=== PATIENT | male | born 1965 | race Caucasian/White ===

== ENCOUNTER 2017-03-17 12:28 | Inpatient (IN) | payer SELFPAY ==
[2017-03-17] MEDS ORDERED: Sodium Chloride 0.9% 10 ML Syringe FLUSH PRN (13:09)
[2017-03-17] MEDS ORDERED: Sodium Chloride 0.9% 1,000 ML IV ONE (13:10)
[2017-03-17] MEDS ORDERED: Ondansetron 4 MG/2 ML SDV IVPUSH ONE (13:10)
[2017-03-17] MEDS ORDERED: HYDROmorphone 0.5 MG/0.5 ML Syringe IVPUSH ONE (13:10)
--- NOTE | 2017-03-17 13:16 | EDM.PDOC ---
ED HPI GENERAL MEDICAL PROBLEM - General Chief Complaint: Abdominal Pain Stated Complaint: R SIDE PAIN Time Seen by Provider: 03/17/17 13:01 Source of Information: Reports: Patient History Limitations: Reports: No Limitations - History of Present Illness INITIAL COMMENTS - FREE TEXT/NARRATIVE: Patient is a 51-year-old male who admits ED complaining of right lower quadrant abdominal pain that started approximately 2 days ago and progressively got worse. Pain is progressively getting worse unable to stand straight up. Pain is worsen with ambulating. And is quite tender with touch. He does have a history of left inguinal hernia repair with no further complications. Patient states pain is more tolerable with lying down than standing up. There's been no documented fever, nausea/vomiting, diarrhea, headache, chills, chest pain, shortness of breath. Patient still has his appendix. He has no history kidney stones. He was evaluated by his PCP Ruslan Johnson earlier today with CBC obtained indicating White blood cell count of 17.6 with neutrophilia and left shift. Patient has a past medical history of GERD and is on a PPI. Surgical history includes left inguinal hernia repair. Repair of nerve and vasculature to left thigh after being impaled with metal. Ulcer to the left foot secondary to wearing a brace that became infected requiring hospitalization and IV antibiotics. 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 Patient last ate at 9:00 this morning. He does not smoke. Alcohol use rarely. Denied recreational drug use. Treatments ETCHER HAND: Reports: NSAIDS Right Lower Abdominal Pain Score (Numeric/FACES): 6 - Related Data Allergies Allergy/AdvReac Type Severity Reaction Status Date / Time No Known Allergies Allergy Verified 03/17/17 12:42 Home Meds: Home Meds Esomeprazole Magnesium [Nexium] 40 mg PO DAILY 03/17/17 [History] Past Medical History Musculoskeletal History: Reports: Other (See Below) Other Musculoskeletal History: left foot infection, antiiobtics needed. Psychiatric History: Reports: Anxiety - Past Surgical History GI Surgical History: Reports: Hernia, Inguinal, Hernia Repair/Other Musculoskeletal Surgical History: Reports: Other (See Below) Other Musculoskeletal Surgeries/Procedures:: left left surgery when pt was teenager, probably 1983 Social & Family History - Tobacco Use Smoking Status *Q: Former Smoker Used Tobacco, but Quit: Yes Month Tobacco Last Used: 1999 - Caffeine Use Caffeine Use: Reports: Coffee, Soda - Recreational Drug Use Recreational Drug Use: No ED ROS GENERAL - Review of Systems Review Of Systems: ROS reveals no pertinent complaints other than HPI. ED EXAM, GI/ABD - Physical Exam Exam: See Below Exam Limited By: No Limitations General Appearance: Alert, WD/WN, No Apparent Distress Ears: Hearing Grossly Normal Nose: Normal Inspection Throat/Mouth: Normal Voice, No Airway Compromise Head: Atraumatic, Normocephalic Neck: Normal Inspection, Supple Respiratory/Chest: No Respiratory Distress, Lungs Clear, Normal Breath Sounds, No Accessory Muscle Use, Chest Non-Tender Cardiovascular: Normal Peripheral Pulses, Regular Rate, Rhythm GI/Abdominal Exam: Normal Bowel Sounds, Soft, No Organomegaly, Rebound, Tender ( Right lower quadrant and inguinal region. Peritoneal signs are present. ) Rectal (Males) Exam: Deferred (No c/o's per patient) Neurological: Alert, Oriented, CN II-XII Intact, Normal Cognition, No Motor/ Sensory Deficits Psychiatric: Normal Affect, Normal Mood Skin Exam: Warm, Dry, Intact, Normal Color Course - Vital Signs Last Recorded V/S: Last Vital Signs Temp 98.4 F 03/17/17 12:44 Pulse 99 03/17/17 12:44 Resp 18 03/17/17 12:44 BP 152/91 H 03/17/17 12:44 Pulse Ox 96 03/17/17 12:44 - Orders/Labs/Meds Orders: Active Orders 24 hr Category Date Time Status EKG Documentation Completion [RC] STAT Care 03/17/17 13:09 Active Peripheral IV Care [RC] . DIRECTED Care 03/17/17 13:10 Active Piperacillin/Tazobactam [Zosyn] 4.5 gm Med 03/17/17 15:17 Active Sodium Chloride 0.9% [Normal Saline] 100 ml IV ONETIME Sodium Chloride 0.9% [Normal Saline] 1,000 ml Med 03/17/17 13:10 Active IV ONETIME Sodium Chloride 0.9% [Saline Flush] Med 03/17/17 13:09 Active 10 ml FLUSH ASDIRECTED PRN Peripheral IV Insertion Adult [OM.PC] Stat Oth 03/17/17 13:09 Ordered Medication Orders Sodium Chloride (Normal Saline) 1,000 mls @ 250 mls/hr IV ONETIME ONE Stop: 03/17/17 17:09 Last Admin: 03/17/17 13:23 Dose: 250 mls/hr Piperacillin Sod/Tazobactam (Sod 4.5 gm/ Sodium Chloride) 100 mls @ 200 mls/hr IV ONETIME ONE Stop: 03/17/17 15:46 Last Admin: 03/17/17 15:29 Dose: 200 mls/hr Sodium Chloride (Saline Flush) 10 ml FLUSH ASDIRECTED PRN PRN Reason: Keep Vein Open Last Admin: 03/17/17 14:37 Dose: 10 ml Labs: Laboratory Tests 03/17/17 03/17/17 03/17/17 Range/Units 13:15 13:15 13:15 WBC 17.77 H (4.23-9.07) K/mm3 RBC 5.39 (4.63-6.08) M/mm3 Hgb 15.8 (13.7-17.5) gm/L Hct 46.3 (40.1-51.0) % MCV 85.9 (79.0-92.2) fl MCH 29.3 (25.7-32.2) pg MCHC 34.1 (32.2-35.5) g/dl RDW Std Deviation 42.0 (35.1-43.9) fL Plt Count 183 (163-337) K/mm3 MPV 10.0 (9.4-12.3) fl Neut % (Auto) 80.8 H (34.0-67.9) % Lymph % (Auto) 6.2 L (21.8-53.1) % [place] % (Auto) 12.3 H (5.3-12.2) % Eos % (Auto) 0.2 L (0.8-7.0) Baso % (Auto) 0.2 (0.1-1.2) % Neut # (Auto) 14.38 H (1.78-5.38) K/mm3 Lymph # (Auto) 1.10 L (1.32-3.57) K/mm3 [place] # (Auto) 2.18 H (0.30-0.82) K/mm3 Eos # (Auto) 0.03 L (0.04-0.54) K/mm3 Baso # (Auto) 0.03 (0.01-0.08) K/mm3 Sodium 138 (136-145) mEq/L Potassium 3.9 (3.5-5.1) mEq/L Chloride 100 (98-107) mEq/L Carbon Dioxide 26 (21-32) mEq/L Anion Gap 15.9 H (5-15) BUN 16 (7-18) mg/dL Creatinine 1.2 (0.7-1.3) mg/dL Est Cr Clr Drug Dosing 80.83 mL/min Estimated GFR (MDRD) > 60 (>60) mL/min BUN/Creatinine Ratio 13.3 L (14-18) Glucose 111 H (74-106) mg/dL Calcium 9.4 (8.5-10.1) mg/dL Total Bilirubin 0.7 (0.2-1.0) mg/dL AST 26 (15-37) U/L ALT 44 (16-63) U/L Alkaline Phosphatase 97 (46-116) U/L C-Reactive Protein 34.1 H* (<1.0) mg/dL Total Protein 8.2 (6.4-8.2) g/dl Albumin 3.7 (3.4-5.0) g/dl Globulin 4.5 gm/dL Albumin/Globulin Ratio 0.8 L (1-2) Lipase 58 L (73-393) U/L Urine Color Yellow (Yellow) Urine Appearance Clear (Clear) Urine pH 7.0 (5.0-8.0) Ur Specific [place] 1.025 (1.005-1.030) Urine Protein 2+ H (Negative) Urine Glucose (UA) Trace H (Negative) Urine Ketones Negative (Negative) Urine Occult Blood Negative (Negative) Urine Nitrite Negative (Negative) Urine Bilirubin 1+ H (Negative) Urine Urobilinogen 1.0 (0.2-1.0) Ur Leukocyte Esterase Negative (Negative) Urine RBC 0-5 (0-5) /hpf Urine WBC 0-5 (0-5) /hpf Ur Epithelial Cells 0-5 (0-5) /hpf Urine Bacteria Few (FEW) /hpf Urine Mucus Few (FEW) /hpf Meds: Medications Generic Name Dose Route Start Last Admin Trade Name Freq PRN Reason Stop Dose Admin Sodium Chloride 1,000 mls @ 250 mls/hr 03/17/17 13:10 03/17/17 13:23 Normal Saline IV 03/17/17 17:09 250 mls/hr ONETIME ONE Administration Piperacillin Sod/Tazobactam 100 mls @ 200 mls/hr 03/17/17 15:17 03/17/17 15: 29 Sod 4.5 gm/ Sodium Chloride IV 03/17/17 15:46 200 mls/hr ONETIME ONE Administration Sodium Chloride 10 ml 03/17/17 13:09 03/17/17 14:37 Saline Flush FLUSH 10 ml ASDIRECTED PRN Administration Keep Vein Open Discontinued Medications Generic Name Dose Route Start Last Admin Trade Name Freq PRN Reason Stop Dose Admin Diatrizoate Meglum/Diatrizoate Sod 90 ml 03/17/17 13:20 03/17/17 14:37 Gastrografin 37% PO 03/17/17 13:21 90 ml ONETIME ONE Administration Hydromorphone HCl 0.5 mg 03/17/17 13:10 03/17/17 13:25 Dilaudid IVPUSH 03/17/17 13:11 0.5 mg ONETIME ONE Administration Cefoxitin Sodium 2 gm/ Premix 50 mls @ 100 mls/hr 03/17/17 14:14 03/17/17 14: 49 IV 03/17/17 14:43 100 mls/hr ONETIME ONE Administration Iopamidol 125 ml 03/17/17 13:20 03/17/17 14:37 Isovue-300 (61%) IVPUSH 03/17/17 13:21 125 ml ONETIME ONE Administration Ondansetron HCl 4 mg 03/17/17 13:10 03/17/17 13:23 Zofran IVPUSH 03/17/17 13:11 4 mg ONETIME ONE Administration Sodium Chloride 10 ml 03/17/17 13:20 03/17/17 13:25 Saline Flush FLUSH 03/17/17 13:21 10 ml ONETIME ONE Administration - Re-Assessments/Exams Free Text/Narrative Re-Assessment/Exam: IV established with normal saline 250 mL per hour, Zofran 4 mg IVP, and Dilaudid 0.5 mg IVP. Initial labs and studies include CBC, chem 14, lipase, UA, CRP, EKG, and CT abdomen and pelvis with IV and oral contrast. Labs: Labs reviewed: White blood cell count 17.77, hemoglobin 15.8, neutrophil percent is 80.8 with a left shift of 14.38. Sodium 138, potassium 3.9, AG 15.9, creatinine 1.2, glucose 111, LFTs within normal limits, CRP quite elevated at 34.1, lipase 58. UA revealed protein 2+, trace glucose, bilirubin 1+. Refrain patient may have appendicitis with labs indicating elevated white blood cell count with left shift and a CRP of 34.1. He does have peritoneal signs. Ordered cefoxitin 2 g IV. 03/17/17 14:40 I spoke with the on-call general surgeon Dr. Tuttle. We have reviewed the CT of the abdomen and pelvis with IV and oral contrast. It appears patient has inflammation noted to the right lower quadrant consistent for acute appendicitis. We are waiting for final radiologist interpretation. 03/17/17 15:10 CT abdomen and pelvis final Impression: Appendicitis. Notified Dr. Tuttle. 03/17/17 15:17 Dr. Vogt has evaluated the patient. OR staff has been notified. Requested zosyn 4.5 grams IV. Departure - Departure Time of Disposition: 15:17 Disposition: DC/Tfer to [facility] Access 66 Condition: Fair Clinical Impression: Appendicitis Qualifiers: Appendicitis type: acute appendicitis Acute appendicitis type: with localized peritonitis Qualified Code(s): K35.3 - Acute appendicitis with localized peritonitis - Discharge Information - My Orders Last 24 Hours: My Active Orders 03/17/17 13:09 EKG Documentation Completion [RC] STAT Sodium Chloride 0.9% [Saline Flush] 10 ml FLUSH ASDIRECTED PRN Peripheral IV Insertion Adult [OM.PC] Stat 03/17/17 13:10 Peripheral IV Care [RC] . DIRECTED Sodium Chloride 0.9% [Normal Saline] 1,000 ml IV ONETIME 03/17/17 15:17 Piperacillin/Tazobactam [Zosyn] 4.5 gm Sodium Chloride 0.9% [Normal Saline] 100 ml IV ONETIME - Assessment/Plan Last 24 Hours: My Active Orders 03/17/17 13:09 EKG Documentation Completion [RC] STAT Sodium Chloride 0.9% [Saline Flush] 10 ml FLUSH ASDIRECTED PRN Peripheral IV Insertion Adult [OM.PC] Stat 03/17/17 13:10 Peripheral IV Care [RC] . DIRECTED Sodium Chloride 0.9% [Normal Saline] 1,000 ml IV ONETIME 03/17/17 15:17 Piperacillin/Tazobactam [Zosyn] 4.5 gm Sodium Chloride 0.9% [Normal Saline] 100 ml IV ONETIME
[2017-03-17] MEDS ORDERED: Diatrizoate Meglumine/Diatrizoate Sodium 37% 120 ML Bottle PO ONE (13:20)
[2017-03-17] MEDS ORDERED: Sodium Chloride 0.9% 10 ML Syringe FLUSH ONE (13:20)
[2017-03-17] MEDS ORDERED: Iopamidol 612 MG/ML 150 ML Bottle IVPUSH ONE (13:20)
[2017-03-17] MEDS ORDERED: cefOXitin 2 GM in Premix Bag 1 BAG IV ONE (14:14)
--- NOTE | 2017-03-17 15:08 | CT ---
CT abdomen and pelvis Technique: Multiple axial sections were obtained from above the dome of the diaphragm inferiorly through the pubic symphysis. Intravenous and oral contrast was utilized. Delayed images were obtained through the bladder. Findings: Inflammatory change is seen within the right lower abdomen. Appendix is dilated and contains an appendicolith. Findings are felt compatible with appendicitis. The inflammatory change from the appendicitis is also causing wall thickening of the terminal ileum. Visualized lung bases shows mild atelectasis. Liver shows no focal parenchymal abnormality. Spleen appears within normal limits. Adrenal glands show no nodule. Kidneys show symmetric contrast enhancement without hydronephrosis or mass. Aorta shows no aneurysmal dilatation. No retroperitoneal adenopathy is seen. Pancreas is within normal limits. No pelvic mass or adenopathy is noted. Delayed images shows contrast within the ureters and bladder. Bone window settings were reviewed which shows mild spondylolisthesis of L5-S1 due to bilateral spondylolytic defects. Impression: 1. Findings compatible with appendicitis. Inflammatory change from the appendicitis is causing wall thickening within the terminal ileum. 2. Other incidental findings. Diagnostic code #5
[2017-03-17] MEDS ORDERED: Piperacillin/Tazobactam 4.5 GM in Sodium Chloride 0.9% 100 ML IV ONE (15:17)
[2017-03-17] MEDS ORDERED: Bupivacaine 0.25%/EPINEPHrine 1:200,000 30 ML SDV ONE (15:34)
[2017-03-17] MEDS ORDERED: Lidocaine 1% 30 ML SDV ONE (15:34)
[2017-03-17] MEDS ORDERED: Midazolam 1 MG/ML 2 ML SDV ONE (16:04)
[2017-03-17] MEDS ORDERED: Rocuronium 50 MG/5 ML Vial ONE ×2 (16:04→17:33)
[2017-03-17] MEDS ORDERED: Ondansetron 4 MG/2 ML SDV ONE (16:04)
[2017-03-17] MEDS ORDERED: Succinylcholine/Normal Saline 100 MG/5 ML Syringe ONE (16:04)
[2017-03-17] MEDS ORDERED: Propofol 200 MG/20 ML SDV ONE (16:04)
[2017-03-17] MEDS ORDERED: fentaNYL 250 MCG/5 ML SDV ONE (16:04)
[2017-03-17] MEDS ORDERED: Lactated Ringers 2,000 ML ONE (16:04)
[2017-03-17] MEDS ORDERED: Metoclopramide 10 MG/2 ML SDV ONE (16:05)
--- NOTE | 2017-03-17 16:05 | PCM.PREANE ---
Preanesthetic Assessment - Anesthesia/Transfusion/Family Hx Anesthesia History: Prior Anesthesia Without Reaction Family History of Anesthesia Reaction: No Transfusion History: Prior Transfusion Without Reaction - Review of Systems General: Appetite Pulmonary: Cough (Dry cough. On and off throughout the day. ) Cardiovascular: No Symptoms Gastrointestinal: Abdominal Pain, Decreased Appetite, Other (Heart burn, controlled with medication. No problems now. ) Neurological: No Symptoms Other: Reports: None - Physical Assessment NPO Status Date: 03/17/17 NPO Status Time: 09:00 O2 Sat by Pulse Oximetry: 96 Respiratory Rate: 18 Vital Signs: Last Vital Signs Temp 36.9 C 03/17/17 12:44 Pulse 99 03/17/17 12:44 Resp 18 03/17/17 12:44 BP 152/91 H 03/17/17 12:44 Pulse Ox 96 03/17/17 12:44 Height: 1.83 m Weight: 94.347 kg ASA Class: 2 Mental Status: Alert & Oriented x3 Airway Class: Mallampati = 2 Dentition: Reports: Normal Dentition Thyro-Mental Finger Breadths: 3 Mouth Opening Finger Breadths: 3 ROM/Head Extension: Full Lungs: Clear to Auscultation, Normal Respiratory Effort, Decreased Breath Sounds (Increased abdominal pain with deep breathing. ) Cardiovascular: Regular Rate, Regular Rhythm - Lab Values: Laboratory Last Values WBC 17.77 K/mm3 (4.23-9.07) H 03/17/17 13:15 RBC 5.39 M/mm3 (4.63-6.08) 03/17/17 13:15 Hgb 15.8 gm/L (13.7-17.5) 03/17/17 13:15 Hct 46.3 % (40.1-51.0) 03/17/17 13:15 MCV 85.9 fl (79.0-92.2) 03/17/17 13:15 MCH 29.3 pg (25.7-32.2) 03/17/17 13:15 MCHC 34.1 g/dl (32.2-35.5) 03/17/17 13:15 RDW Std Deviation 42.0 fL (35.1-43.9) 03/17/17 13:15 Plt Count 183 K/mm3 (163-337) 03/17/17 13:15 MPV 10.0 fl (9.4-12.3) 03/17/17 13:15 Neut % (Auto) 80.8 % (34.0-67.9) H 03/17/17 13:15 Lymph % (Auto) 6.2 % (21.8-53.1) L 03/17/17 13:15 [place] % (Auto) 12.3 % (5.3-12.2) H 03/17/17 13:15 Eos % (Auto) 0.2 (0.8-7.0) L 03/17/17 13:15 Baso % (Auto) 0.2 % (0.1-1.2) 03/17/17 13:15 Neut # (Auto) 14.38 K/mm3 (1.78-5.38) H 03/17/17 13:15 Lymph # (Auto) 1.10 K/mm3 (1.32-3.57) L 03/17/17 13:15 [place] # (Auto) 2.18 K/mm3 (0.30-0.82) H 03/17/17 13:15 Eos # (Auto) 0.03 K/mm3 (0.04-0.54) L 03/17/17 13:15 Baso # (Auto) 0.03 K/mm3 (0.01-0.08) 03/17/17 13:15 Sodium 138 mEq/L (136-145) 03/17/17 13:15 Potassium 3.9 mEq/L (3.5-5.1) 03/17/17 13:15 Chloride 100 mEq/L (98-107) 03/17/17 13:15 Carbon Dioxide 26 mEq/L (21-32) 03/17/17 13:15 Anion Gap 15.9 (5-15) H 03/17/17 13:15 BUN 16 mg/dL (7-18) 03/17/17 13:15 Creatinine 1.2 mg/dL (0.7-1.3) 03/17/17 13:15 Est Cr Clr Drug Dosing 80.83 mL/min 03/17/17 13:15 Estimated GFR (MDRD) > 60 mL/min (>60) 03/17/17 13:15 BUN/Creatinine Ratio 13.3 (14-18) L 03/17/17 13:15 Glucose 111 mg/dL (74-106) H 03/17/17 13:15 Calcium 9.4 mg/dL (8.5-10.1) 03/17/17 13:15 Total Bilirubin 0.7 mg/dL (0.2-1.0) 03/17/17 13:15 AST 26 U/L (15-37) 03/17/17 13:15 ALT 44 U/L (16-63) 03/17/17 13:15 Alkaline Phosphatase 97 U/L (46-116) 03/17/17 13:15 C-Reactive Protein 34.1 mg/dL (<1.0) H* 03/17/17 13:15 Total Protein 8.2 g/dl (6.4-8.2) 03/17/17 13:15 Albumin 3.7 g/dl (3.4-5.0) 03/17/17 13:15 Globulin 4.5 gm/dL 03/17/17 13:15 Albumin/Globulin Ratio 0.8 (1-2) L 03/17/17 13:15 Lipase 58 U/L (73-393) L 03/17/17 13:15 Urine Color Yellow (Yellow) 03/17/17 13:15 Urine Appearance Clear (Clear) 03/17/17 13:15 Urine pH 7.0 (5.0-8.0) 03/17/17 13:15 Ur Specific [place] 1.025 (1.005-1.030) 03/17/17 13:15 Urine Protein 2+ (Negative) H 03/17/17 13:15 Urine Glucose (UA) Trace (Negative) H 03/17/17 13:15 Urine Ketones Negative (Negative) 03/17/17 13:15 Urine Occult Blood Negative (Negative) 03/17/17 13:15 Urine Nitrite Negative (Negative) 03/17/17 13:15 Urine Bilirubin 1+ (Negative) H 03/17/17 13:15 Urine Urobilinogen 1.0 (0.2-1.0) 03/17/17 13:15 Ur Leukocyte Esterase Negative (Negative) 03/17/17 13:15 Urine RBC 0-5 /hpf (0-5) 03/17/17 13:15 Urine WBC 0-5 /hpf (0-5) 03/17/17 13:15 Ur Epithelial Cells 0-5 /hpf (0-5) 03/17/17 13:15 Urine Bacteria Few /hpf (FEW) 03/17/17 13:15 Urine Mucus Few /hpf (FEW) 03/17/17 13:15 - Allergies Allergies/Adverse Reactions: Allergies Allergy/AdvReac Type Severity Reaction Status Date / Time No Known Allergies Allergy Verified 03/17/17 12:42 - Acknowledgements Anesthesia Type Planned: General Anesthesia Pt an Appropriate Candidate for the Planned Anesthesia: Yes Alternatives and Risks of Anesthesia Discussed w Pt/Guardian: Yes Pt/Guardian Understands and Agrees with Anesthesia Plan: Yes PreAnesthesia Questionnaire Musculoskeletal History: Reports: Other (See Below) Other Musculoskeletal History: left foot infection, antiiobtics needed. Psychiatric History: Reports: Anxiety - Past Surgical History GI Surgical History: Reports: Hernia, Inguinal, Hernia Repair/Other Musculoskeletal Surgical History: Reports: Other (See Below) Other Musculoskeletal Surgeries/Procedures:: left left surgery when pt was teenager, probably 1983 - SUBSTANCE USE Smoking Status *Q: Former Smoker Recreational Drug Use History: No - HOME MEDS Home Medications: Home Meds Esomeprazole Magnesium [Nexium] 40 mg PO DAILY 03/17/17 [History] - CURRENT (IN HOUSE) MEDS Current Meds: Current Medications Sodium Chloride (Normal Saline) 1,000 mls @ 250 mls/hr IV ONETIME ONE Stop: 03/17/17 17:09 Last Admin: 03/17/17 13:23 Dose: 250 mls/hr Sodium Chloride (Saline Flush) 10 ml FLUSH ASDIRECTED PRN PRN Reason: Keep Vein Open Last Admin: 03/17/17 14:37 Dose: 10 ml Discontinued Medications Bupivacaine HCl/Epinephrine Bitart (Marcaine 0.25%/Epinephrine 1:200,000) Confirm Administered Dose 30 ml .ROUTE .STK-MED ONE Stop: 03/17/17 15:35 Diatrizoate Meglum/Diatrizoate Sod (Gastrografin 37%) 90 ml PO ONETIME ONE Stop: 03/17/17 13:21 Last Admin: 03/17/17 14:37 Dose: 90 ml Fentanyl (Sublimaze) Confirm Administered Dose 250 mcg .ROUTE .STK-MED ONE Stop: 03/17/17 16:05 Hydromorphone HCl (Dilaudid) 0.5 mg IVPUSH ONETIME ONE Stop: 03/17/17 13:11 Last Admin: 03/17/17 13:25 Dose: 0.5 mg Cefoxitin Sodium 2 gm/ Premix 50 mls @ 100 mls/hr IV ONETIME ONE Stop: 03/17/17 14:43 Last Admin: 03/17/17 14:49 Dose: 100 mls/hr Piperacillin Sod/Tazobactam (Sod 4.5 gm/ Sodium Chloride) 100 mls @ 200 mls/hr IV ONETIME ONE Stop: 03/17/17 15:46 Last Admin: 03/17/17 15:29 Dose: 200 mls/hr Lactated Ringer's (Ringers, Lactated) Confirm Administered Dose 2,000 mls @ as directed .ROUTE .STK-MED ONE Stop: 03/17/17 16:05 Iopamidol (Isovue-300 (61%)) 125 ml IVPUSH ONETIME ONE Stop: 03/17/17 13:21 Last Admin: 03/17/17 14:37 Dose: 125 ml Lidocaine HCl (Xylocaine-Mpf 1%) Confirm Administered Dose 30 ml .ROUTE .STK- MED ONE Stop: 03/17/17 15:35 Metoclopramide HCl (Reglan) Confirm Administered Dose 10 mg .ROUTE .STK-MED ONE Stop: 03/17/17 16:06 Midazolam HCl (Versed 1 Mg/Ml) Confirm Administered Dose 2 mg .ROUTE .STK-MED ONE Stop: 03/17/17 16:05 Ondansetron HCl (Zofran) 4 mg IVPUSH ONETIME ONE Stop: 03/17/17 13:11 Last Admin: 03/17/17 13:23 Dose: 4 mg Ondansetron HCl (Zofran) Confirm Administered Dose 12 mg .ROUTE .STK-MED ONE Stop: 03/17/17 16:05 Propofol (Diprivan 20 Ml) Confirm Administered Dose 400 mg .ROUTE .STK-MED ONE Stop: 03/17/17 16:05 Rocuronium [place] (Zemuron) Confirm Administered Dose 100 mg .ROUTE .STK-MED ONE Stop: 03/17/17 16:05 Sodium Chloride (Saline Flush) 10 ml FLUSH ONETIME ONE Stop: 03/17/17 13:21 Last Admin: 03/17/17 13:25 Dose: 10 ml Succinylcholine Chloride (Succinylcholine In Ns Pf) Confirm Administered Dose 100 mg .ROUTE .[facility] Stop: 03/17/17 16:05
[2017-03-17] MEDS ORDERED: diphenhydrAMINE 50 MG/ML SDV IVPUSH PRN (17:00)
[2017-03-17] MEDS ORDERED: Haloperidol Lactate 5 MG/ML SDV IVPUSH ONE (17:00)
[2017-03-17] MEDS ORDERED: HYDROmorphone 0.5 MG/0.5 ML Syringe IVPUSH PRN (17:00)
[2017-03-17] MEDS ORDERED: Neostigmine Methylsulfate 1 MG/ML 5 ML Syringe ONE (17:33)
[2017-03-17] MEDS ORDERED: Ketorolac 30 MG/ML SDV ONE (17:48)
[2017-03-17] MEDS ORDERED: HYDROmorphone 1 MG/ML Syringe ONE (17:48)
--- NOTE | 2017-03-17 18:04 | PCM.POSTAN ---
POST ANESTHESIA ASSESSMENT - MENTAL STATUS Mental Status: Somnolent - VITAL SIGNS Pulse Rate: 84 SaO2: 99 Resp Rate: 14 Blood Pressure: 127/80 Temperature: 38.3 C - RESPIRATORY Respiratory Status: Respiratory Rate WNL, Airway Patent, O2 Saturation Stable, Supplemental Oxygen - CARDIOVASCULAR CV Status: Pulse Rate WNL, Blood Pressure Stable - GASTROINTESTINAL GI Status: No Symptoms - PAIN Pain Score: 0 - POST OP HYDRATION Hydration Status: Adequate & Stable
[2017-03-17] MEDS ORDERED: Sodium Chloride 0.9% 1,000 ML IV SCH (18:15)
[2017-03-17] MEDS: fentaNYL 100 MCG/2 ML SDV IVPUSH PRN ×2 (18:16→18:35)
[2017-03-17] MEDS: Morphine 4 MG/ML Syringe IVPUSH PRN (19:32)
[2017-03-17] MEDS: Pantoprazole 40 MG Vial IVPUSH SCH (19:32)
[2017-03-17] MEDS: Dextrose 5%-0.9% NaCl 1,000 ML IV SCH (20:02)
[2017-03-17] MEDS ORDERED: FLU Vacc QS 2017-18 (6mos UP)/PF 60 MCG/0.5 ML Syringe IM ONE (21:00)
[2017-03-17] MEDS: Piperacillin/Tazobactam 4.5 GM in Sodium Chloride 0.9% 100 ML IV SCH (22:23)
[2017-03-17] MEDS: Ketorolac 30 MG/ML SDV IVPUSH SCH (23:57)
[2017-03-18] MEDS: Morphine 4 MG/ML Syringe IVPUSH PRN ×4 (01:15→21:07)
[2017-03-18] MEDS: Dextrose 5%-0.9% NaCl 1,000 ML IV SCH (04:05)
[2017-03-18] MEDS: Ketorolac 30 MG/ML SDV IVPUSH SCH ×3 (06:02→17:38)
[2017-03-18] MEDS: Pantoprazole 40 MG Vial IVPUSH SCH ×2 (06:06→18:22)
[2017-03-18] MEDS: Piperacillin/Tazobactam 4.5 GM in Sodium Chloride 0.9% 100 ML IV SCH (06:11)
[2017-03-18] MEDS ORDERED: Piperacillin/Tazobactam 4.5 GM in Dextrose 5% in Water 100 ML IV SCH ×2 (09:37)
[2017-03-18] MEDS: Sodium Chloride 0.45% 1,000 ML IV SCH ×2 (11:23→22:39)
[2017-03-18] MEDS: Piperacillin/Tazobactam 4.5 GM in Dextrose 5% in Water 100 ML IV SCH ×4 (15:01→22:42)
[2017-03-19] MEDS: Ketorolac 30 MG/ML SDV IVPUSH SCH ×3 (00:39→13:38)
[2017-03-19] MEDS: Piperacillin/Tazobactam 4.5 GM in Dextrose 5% in Water 100 ML IV SCH ×6 (06:45→17:18)
[2017-03-19] MEDS: Pantoprazole 40 MG Vial IVPUSH SCH (06:46)
--- NOTE | 2017-03-19 11:42 | PN ---
DATE OF SERVICE: 03/19/2017 Second day post surgery. Tim is doing well. He has been up walking. His bowels are moving a little bit on the loose side. Passing gas. He is eating and tolerating his regular diet. He has one more dose of Zosyn to get and that will be this afternoon, and he will be discharged after that. He is afebrile. White count is down in the 11,000 range, and the organism appears to be E. coli sensitive to most antibiotics. We will probably send him home on Cipro. MMODAL /[id number]
[2017-03-19] MEDS: Acetaminophen/HYDROcodone 325-5 MG Tab PO PRN ×2 (13:39→17:50)
--- NOTE | 2017-03-19 20:41 | PCM48HPAN ---
Post Anesthesia Note - EVALUATION WITHIN 48HRS OF ANESTHETIC Vital Signs in Normal Range: Yes Patient Participated in Evaluation: Yes Respiratory Function Stable: Yes Airway Patent: Yes Cardiovascular Function Stable: Yes Hydration Status Stable: Yes Pain Control Satisfactory: Yes Nausea and Vomiting Control Satisfactory: Yes Mental Status Recovered: Yes
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
--- NOTE | 2017-03-20 08:26 | OR ---
DATE OF OPERATION: 03/17/2017 SURGEON: Herber Haynes PREOPERATIVE DIAGNOSIS: Appendicitis, possible perforation. POSTOPERATIVE DIAGNOSIS: Perforated appendicitis with perforation and small periappendiceal abscess. The appendix was necrotic throughout its length. OPERATION PERFORMED: Open appendectomy. FINDINGS AT SURGERY: Included a totally necrotic appendix gangrenous, which was moderately incarcerated and adherent to the retroperitoneum. DESCRIPTION OF PROCEDURE: Under satisfactory general anesthesia, the patient's abdomen was prepped and draped into a sterile field. A time-out was held. The site of surgery was then shaved and prepped and draped into a sterile field. The incision was marked preoperatively and infiltrated with a mixture of 0.25% Marcaine with epinephrine, mixed 50:50 with 1% Xylocaine. This having been done, incision of approximately 5 cm in length was made transversely overlying the appendix on CT scan. Dissection was carried down through the 3 different layers them in the course of their fibers and the peritoneum was grasped and sharply entered. The cecum was easily identified after the incision had been enlarged slightly and the cecum was then grasped with a harris clamp, brought up into the operative field. It was tethered to the retroperitoneum of the appendix and its inflammatory process in the mesoappendix. With careful finger blunt dissection, the appendix was easily dissected free from the viscera medially and superficially. Dissection was then carefully carried down along the mesoappendix and it was able to be brought up into the operative field. The appendix was necrotic from approximately 2 cm out from the junction of the cecum and an endoscopic suture stapler was placed across the base cecal-appendiceal junction and fired and a second row was then placed proximally encompassing more of the what appeared to be healthy viable cecum. The appendix was then able to be mobilized posteriorly and the vascular bundle carrying the mesenteric artery was identified and ensured that there was no other structures as the best of the ability, and approximately 2 cm from the appendix, a right angle clamp was placed across the mesentery and divided the appendix and the mesoappendix and this was brought into the operative field. The right angle which held the vascular pedicle of the appendix was doubly ligated with 2-0 PDS. The clamp was removed. There was no bleeding. The area was then copiously irrigated with saline and the suction was placed into the pelvis to aspirate a collection of fluid, which was quite cloudy. The area of the pedicle was examined and found to be satisfactory. The cecum was examined and all the viscera were replaced back in the abdominal cavity. The wound was closed in 3 separate layers using 0 PDS suture separately. The superficial fascia was closed with 2 interrupted 3-0 sutures. The area was irrigated and infiltrated with local anesthesia on the way out. Houghton were used to close the skin. Xeroform gauze was then applied along with some 4x4s held in position by clear plastic adhesive. The patient tolerated the procedure well and returned to the recovery area in good condition. ANESTHESIA: General, endotacheal ESTIMATED BLOOD LOSS: 25 cc. MMODAL /[id number] DOMINGO
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
== END 2017-03-19 18:20 | disposition home or self-care (01) | DRG 340 ==
LOC: JD.ED 12:28 → JD.SDS 15:31 → JD.MS 18:14
PROVIDERS: ADMIT Surgery; ATTEND Surgery
PROC: 0DTJ0ZZ Resection of Appendix, Open Approach (ICD-10-PCS; principal; 2017-03-17)
DX: K35.3 Acute appendicitis with localized peritonitis (principal); Z87.891 Personal history of nicotine dependence
CPT/HCPCS: 00840; 36415; 74177; 74177-26; 80053; 81001; 83690; 83735; 85025; 86140; 87075; 87077; 87181; 87186; 87205; 90686; 93005; 96361; 96365; 96367; 96375; 99285; 99285-25; A9270-GY; C9113; G0008; J0330; J0694; J1170; J1885; J2250; J2270; J2405; J2543; J2704; J2710; J2765; J3010; J7030; J7040; J7042; J7050; J7060; J7120; Q9963; Q9967